=== PATIENT | male | born 1945 | race Caucasian/White ===

== ENCOUNTER → 2016-11-21 | Outpatient (CLI) | payer BC, MEDICARE ==
[~2016-11-21] MED LIST: APIX5TAB PO; ASPI81TA2 PO; ATOR40TA PO; BUDE10.2 PO; CELE200C PO; CLOP75TA PO; CLOT10TR PO; DAPT500V IV; DOCU-168 PO; DULO60CA56 PO; ERTA1VIA IV; FERR324T4 PO; FEXO180T94 PO; FLUC10SU PO; FLUT16SP EA NOSTRIL; GABA-305 PO; HYDR-4078 PO; INSU100V8 SQ; METF1000 PO; METF10002 PO; MULT-933 PO; NIFE-17 PO; OMEG500C7; OMEP40CA52 PO; OXYB5TAB33 PO; SILO4CAP PO; SUCR1TAB PO; VITA150T PO
== END ==
LOC: NWCC 09:51
PROVIDERS: ATTEND Internal Medicine
DX: E11.621 Type 2 diabetes mellitus with foot ulcer (principal); L97.512 Non-pressure chronic ulcer of other part of right foot with fat layer exposed; M86.671 Other chronic osteomyelitis, right ankle and foot; L53.9 Erythematous condition, unspecified

== ENCOUNTER → 2016-12-09 | Outpatient (CLI) | payer BC, MEDICARE | LOC: NWCC 09:37 | PROVIDERS: ATTEND Internal Medicine | DX: Z53.8 Procedure and treatment not carried out for other reasons (principal) ==

== ENCOUNTER → 2016-12-26 | Outpatient (CLI) | payer BC, MEDICARE ==
[~2016-12-26] MED LIST changes: -ASPI81TA2 PO; -CLOP75TA PO; -CLOT10TR PO; -DAPT500V IV; -ERTA1VIA IV; -FERR324T4 PO; -FLUC10SU PO; -METF10002 PO; -OMEG500C7
== END ==
LOC: NWCC 10:02
PROVIDERS: ATTEND Internal Medicine
DX: E11.621 Type 2 diabetes mellitus with foot ulcer (principal); L97.512 Non-pressure chronic ulcer of other part of right foot with fat layer exposed; M86.671 Other chronic osteomyelitis, right ankle and foot; L53.9 Erythematous condition, unspecified
CPT/HCPCS: 11042; 82948; 99183; A6209

== ENCOUNTER → 2016-12-27 | Outpatient (CLI) | payer BC, MEDICARE ==
[~2016-12-27] MED LIST changes: +ASPI81TA2 PO; +CLOP75TA PO; +CLOT10TR PO; +DAPT500V IV; +ERTA1VIA IV; +FERR324T4 PO; +FLUC10SU PO; +METF10002 PO; +OMEG500C7
== END ==
LOC: NWCC 10:18
PROVIDERS: ATTEND Surgery
DX: E11.621 Type 2 diabetes mellitus with foot ulcer (principal); L97.412 Non-pressure chronic ulcer of right heel and midfoot with fat layer exposed; M86.671 Other chronic osteomyelitis, right ankle and foot; B95.61 Methicillin susceptible Staphylococcus aureus infection as the cause of diseases classified elsewhere
CPT/HCPCS: 82948; 99183

== ENCOUNTER → 2016-12-28 | Outpatient (CLI) | payer BC, MEDICARE ==
[~2016-12-28] MED LIST changes: -ASPI81TA2 PO; -CLOP75TA PO; -CLOT10TR PO; -DAPT500V IV; -ERTA1VIA IV; -FERR324T4 PO; -FLUC10SU PO; -METF10002 PO; -OMEG500C7
== END ==
LOC: NWCC 10:20
PROVIDERS: ATTEND Internal Medicine
DX: E11.621 Type 2 diabetes mellitus with foot ulcer (principal); L97.412 Non-pressure chronic ulcer of right heel and midfoot with fat layer exposed; M86.671 Other chronic osteomyelitis, right ankle and foot; B95.61 Methicillin susceptible Staphylococcus aureus infection as the cause of diseases classified elsewhere
CPT/HCPCS: 82948; 99183

== ENCOUNTER → 2016-12-29 | Outpatient (CLI) | payer BC, MEDICARE | LOC: NWCC 10:25 | PROVIDERS: ATTEND Internal Medicine | DX: E11.621 Type 2 diabetes mellitus with foot ulcer (principal); L97.412 Non-pressure chronic ulcer of right heel and midfoot with fat layer exposed; M86.671 Other chronic osteomyelitis, right ankle and foot; B95.61 Methicillin susceptible Staphylococcus aureus infection as the cause of diseases classified elsewhere | CPT/HCPCS: 99183 ==

== ENCOUNTER → 2016-12-30 | Outpatient (CLI) | payer BC, MEDICARE | LOC: NWCC 07:56 | PROVIDERS: ATTEND Internal Medicine | DX: E11.621 Type 2 diabetes mellitus with foot ulcer (principal); L97.412 Non-pressure chronic ulcer of right heel and midfoot with fat layer exposed; M86.671 Other chronic osteomyelitis, right ankle and foot; B95.61 Methicillin susceptible Staphylococcus aureus infection as the cause of diseases classified elsewhere | CPT/HCPCS: 99183 ==

== ENCOUNTER → 2017-01-02 | Outpatient (CLI) | payer BC, MEDICARE | LOC: NWCC 10:28 | PROVIDERS: ATTEND Internal Medicine | DX: E11.621 Type 2 diabetes mellitus with foot ulcer (principal); L97.412 Non-pressure chronic ulcer of right heel and midfoot with fat layer exposed; M86.671 Other chronic osteomyelitis, right ankle and foot; B95.61 Methicillin susceptible Staphylococcus aureus infection as the cause of diseases classified elsewhere | CPT/HCPCS: 99183 ==

== ENCOUNTER → 2017-01-05 | Outpatient (CLI) | payer BC, MEDICARE | LOC: NWCC 10:12 | PROVIDERS: ATTEND Internal Medicine | DX: E11.621 Type 2 diabetes mellitus with foot ulcer (principal); L97.412 Non-pressure chronic ulcer of right heel and midfoot with fat layer exposed; M86.671 Other chronic osteomyelitis, right ankle and foot; B95.61 Methicillin susceptible Staphylococcus aureus infection as the cause of diseases classified elsewhere | CPT/HCPCS: 99183; A6210 ==

== ENCOUNTER → 2017-01-06 | Outpatient (CLI) | payer BC, MEDICARE | LOC: NWCC 10:14 | PROVIDERS: ATTEND Internal Medicine | DX: E11.621 Type 2 diabetes mellitus with foot ulcer (principal); L97.412 Non-pressure chronic ulcer of right heel and midfoot with fat layer exposed; M86.671 Other chronic osteomyelitis, right ankle and foot; B95.61 Methicillin susceptible Staphylococcus aureus infection as the cause of diseases classified elsewhere | CPT/HCPCS: 99183 ==

== ENCOUNTER → 2017-01-09 | Outpatient (CLI) | payer BC, MEDICARE | LOC: NWCC 10:20 | PROVIDERS: ATTEND Internal Medicine | DX: E11.621 Type 2 diabetes mellitus with foot ulcer (principal); L97.412 Non-pressure chronic ulcer of right heel and midfoot with fat layer exposed; M86.671 Other chronic osteomyelitis, right ankle and foot; B95.61 Methicillin susceptible Staphylococcus aureus infection as the cause of diseases classified elsewhere | CPT/HCPCS: 82948; 99183 ==

== ENCOUNTER → 2017-01-10 | Outpatient (CLI) | payer BC, MEDICARE | LOC: NWCC 10:20 | PROVIDERS: ATTEND Surgery | DX: E11.621 Type 2 diabetes mellitus with foot ulcer (principal); L97.412 Non-pressure chronic ulcer of right heel and midfoot with fat layer exposed; M86.671 Other chronic osteomyelitis, right ankle and foot; B95.61 Methicillin susceptible Staphylococcus aureus infection as the cause of diseases classified elsewhere | CPT/HCPCS: 82948; 99183 ==

== ENCOUNTER → 2017-01-11 | Outpatient (CLI) | payer BC, MEDICARE | LOC: NWCC 10:24 | PROVIDERS: ATTEND Internal Medicine | DX: E11.621 Type 2 diabetes mellitus with foot ulcer (principal); L97.412 Non-pressure chronic ulcer of right heel and midfoot with fat layer exposed; M86.671 Other chronic osteomyelitis, right ankle and foot; B95.61 Methicillin susceptible Staphylococcus aureus infection as the cause of diseases classified elsewhere | CPT/HCPCS: 82948; 99183 ==

== ENCOUNTER → 2017-01-12 | Outpatient (CLI) | payer BC, MEDICARE | LOC: NWCC 09:08 | PROVIDERS: ATTEND Internal Medicine | DX: E11.621 Type 2 diabetes mellitus with foot ulcer (principal); L97.412 Non-pressure chronic ulcer of right heel and midfoot with fat layer exposed; M86.671 Other chronic osteomyelitis, right ankle and foot; B95.61 Methicillin susceptible Staphylococcus aureus infection as the cause of diseases classified elsewhere; G62.9 Polyneuropathy, unspecified | CPT/HCPCS: 11042; 82948; 99183 ==

== ENCOUNTER → 2017-01-16 | Outpatient (CLI) | payer BC, MEDICARE | LOC: NWCC 10:16 | PROVIDERS: ATTEND Internal Medicine | DX: E11.621 Type 2 diabetes mellitus with foot ulcer (principal); L97.412 Non-pressure chronic ulcer of right heel and midfoot with fat layer exposed; M86.671 Other chronic osteomyelitis, right ankle and foot; B95.61 Methicillin susceptible Staphylococcus aureus infection as the cause of diseases classified elsewhere | CPT/HCPCS: 82948; 99183 ==

== ENCOUNTER → 2017-01-17 | Outpatient (CLI) | payer BC, MEDICARE | LOC: NWCC 10:14 | PROVIDERS: ATTEND Surgery | DX: E11.621 Type 2 diabetes mellitus with foot ulcer (principal); L97.412 Non-pressure chronic ulcer of right heel and midfoot with fat layer exposed; M86.671 Other chronic osteomyelitis, right ankle and foot; B95.61 Methicillin susceptible Staphylococcus aureus infection as the cause of diseases classified elsewhere | CPT/HCPCS: 82948; 99183 ==

== ENCOUNTER → 2017-01-18 | Outpatient (CLI) | payer BC, MEDICARE | LOC: NWCC 10:01 | PROVIDERS: ATTEND Internal Medicine | DX: E11.621 Type 2 diabetes mellitus with foot ulcer (principal); L97.412 Non-pressure chronic ulcer of right heel and midfoot with fat layer exposed; M86.671 Other chronic osteomyelitis, right ankle and foot; B95.61 Methicillin susceptible Staphylococcus aureus infection as the cause of diseases classified elsewhere | CPT/HCPCS: 11042; 82948; 99183 ==

== ENCOUNTER → 2017-01-19 | Outpatient (CLI) | payer BC, MEDICARE | LOC: NWCC 10:15 | PROVIDERS: ATTEND Internal Medicine | DX: E11.621 Type 2 diabetes mellitus with foot ulcer (principal); L97.412 Non-pressure chronic ulcer of right heel and midfoot with fat layer exposed; M86.671 Other chronic osteomyelitis, right ankle and foot; B95.61 Methicillin susceptible Staphylococcus aureus infection as the cause of diseases classified elsewhere | CPT/HCPCS: 82948; 99183 ==

== ENCOUNTER → 2017-01-20 | Outpatient (CLI) | payer BC, MEDICARE | LOC: NWCC 10:09 | PROVIDERS: ATTEND Internal Medicine | DX: E11.621 Type 2 diabetes mellitus with foot ulcer (principal); L97.412 Non-pressure chronic ulcer of right heel and midfoot with fat layer exposed; M86.671 Other chronic osteomyelitis, right ankle and foot; B95.61 Methicillin susceptible Staphylococcus aureus infection as the cause of diseases classified elsewhere | CPT/HCPCS: 99183 ==

== ENCOUNTER → 2017-01-23 | Outpatient (CLI) | payer BC, MEDICARE | LOC: NWCC 10:22 | PROVIDERS: ATTEND Internal Medicine | DX: E11.621 Type 2 diabetes mellitus with foot ulcer (principal); L97.412 Non-pressure chronic ulcer of right heel and midfoot with fat layer exposed; M86.671 Other chronic osteomyelitis, right ankle and foot; B95.61 Methicillin susceptible Staphylococcus aureus infection as the cause of diseases classified elsewhere | CPT/HCPCS: 99183 ==

== ENCOUNTER → 2017-01-24 | Outpatient (CLI) | payer BC, MEDICARE | LOC: NWCC 10:26 | PROVIDERS: ATTEND Surgery | DX: E11.621 Type 2 diabetes mellitus with foot ulcer (principal); L97.412 Non-pressure chronic ulcer of right heel and midfoot with fat layer exposed; M86.671 Other chronic osteomyelitis, right ankle and foot; B95.61 Methicillin susceptible Staphylococcus aureus infection as the cause of diseases classified elsewhere | CPT/HCPCS: 99183 ==

== ENCOUNTER → 2017-01-25 | Outpatient (CLI) | payer BC, MEDICARE | LOC: NWCC 10:26 | PROVIDERS: ATTEND Internal Medicine | DX: E11.621 Type 2 diabetes mellitus with foot ulcer (principal); L97.412 Non-pressure chronic ulcer of right heel and midfoot with fat layer exposed; M86.671 Other chronic osteomyelitis, right ankle and foot; B95.61 Methicillin susceptible Staphylococcus aureus infection as the cause of diseases classified elsewhere | CPT/HCPCS: 99183 ==

== ENCOUNTER → 2017-01-26 | Outpatient (CLI) | payer BC, MEDICARE | LOC: NWCC 09:28 | PROVIDERS: ATTEND Internal Medicine | DX: E11.621 Type 2 diabetes mellitus with foot ulcer (principal); L97.412 Non-pressure chronic ulcer of right heel and midfoot with fat layer exposed; M86.671 Other chronic osteomyelitis, right ankle and foot; B95.61 Methicillin susceptible Staphylococcus aureus infection as the cause of diseases classified elsewhere | CPT/HCPCS: 11042; 99183; A6209 ==

== ENCOUNTER → 2017-01-26 | Outpatient (CLI) | payer BC, MEDICARE ==
--- NOTE | 2017-01-26 15:05 | DI ---
Indication: ITS.REASON: R51 HEADACHE; R41.5 PROCEDURE: CT HEAD W/O CONTRAST: Encounter: Initial Comparison: December 09, 2016 Technique: Axial CT images through the head were performed without contrast. Iterative Reconstruction dose reducing technique was utilized. FINDINGS: Mild generalized atrophy. The ventricles are unchanged. There are scattered areas of low attenuation in the white matter which most likely represent changes from chronic microvascular ischemia. The brainstem, cerebellum, and cerebral hemispheres otherwise have a normal morphology and CT attenuation. There is no evidence of midline displacement. No hemorrhage, signs of acute territorial stroke, mass effect, mass lesions, or edema is evident. The visualized portions of the skull base, midface, and calvarium demonstrate no abnormality. Small bilateral mastoid effusions. IMPRESSION: No acute intracranial abnormality or hemorrhage. Stable head CT. .
== END ==
LOC: IMA 14:16
PROVIDERS: ATTEND Physician Assistant
DX: R51 Headache (principal); R41.3 Other amnesia; H74.8X3 Other specified disorders of middle ear and mastoid, bilateral

== ENCOUNTER → 2017-01-27 | Outpatient (CLI) | payer BC, MEDICARE | LOC: NWCC 10:25 | PROVIDERS: ATTEND Orthopaedic Surgery | DX: E11.621 Type 2 diabetes mellitus with foot ulcer (principal); L97.412 Non-pressure chronic ulcer of right heel and midfoot with fat layer exposed; M86.671 Other chronic osteomyelitis, right ankle and foot; B95.61 Methicillin susceptible Staphylococcus aureus infection as the cause of diseases classified elsewhere | CPT/HCPCS: 99183 ==

== ENCOUNTER → 2017-02-02 | Outpatient (CLI) | payer BC, MEDICARE ==
[~2017-02-02] MED LIST changes: +CALMOSEPTINE OINTMENT 3.5 G PACKET TOP ONE; +SALINE FLUSH 10ml SYRINGE IVF ONE; +SILVER NITRATE APPLICATOR TOP ONE
== END ==
LOC: NWCC 10:35
PROVIDERS: ATTEND Internal Medicine
DX: E11.621 Type 2 diabetes mellitus with foot ulcer (principal); L97.512 Non-pressure chronic ulcer of other part of right foot with fat layer exposed; M86.671 Other chronic osteomyelitis, right ankle and foot; B95.61 Methicillin susceptible Staphylococcus aureus infection as the cause of diseases classified elsewhere; L53.9 Erythematous condition, unspecified; G62.9 Polyneuropathy, unspecified
CPT/HCPCS: 11042; 87070; 87075; 87077; 87186; 87205; A6209

== ENCOUNTER → 2017-02-08 | Outpatient (CLI) | payer BC, MEDICARE ==
[~2017-02-08] MED LIST changes: -SILVER NITRATE APPLICATOR TOP ONE
--- NOTE | 2017-02-08 15:51 | WOUNDPNF ---
DATE February 08, 2017 CHIEF COMPLAINT Followup for osteomyelitis of the right fifth metatarsal. HISTORY OF PRESENT ILLNESS Mr. Blanco velazquez is a [age]-year-old man with a history of wound on the lateral aspect of his right foot since approximately June 03, 2015. He was diagnosed with osteomyelitis in November 2015. He underwent cardiac catheterization with stenting and also revascularization procedures in his lower extremities by Dr. Rivera in November 2015. He underwent bone biopsy of the right fifth metatarsal on December 08, [address] Bush for cultures and pathology. This showed chronic and acute osteomyelitis and the bone culture had a negative Gram stain but grew methicillin-susceptible Staph aureus which was sensitive to clindamycin, doxycycline, erythromycin, linezolid, tetracycline, tigecycline, sulfa and vancomycin. I treated him with daptomycin for outpatient therapy and he completed six weeks on approximately January 26, 2016. Following that he was given Keflex for another one to two weeks and continued to follow in the wound clinic with Dr. Cruz. However, the wound did not completely heal. In September his wound was noted to be getting larger. He had a bone scan done October 07 which showed osteomyelitis of the right fifth metatarsal head region. I saw him again on October 26, 2016 and started him on another six-week course of IV antibiotics. He was treated with daptomycin as well as Invanz. He also underwent hyperbaric oxygen therapy. I last saw him December 07. He was near the end of his six-week course of IV antibiotics at that time but he continued to have a wound on his foot so I gave him Bactrim for another two weeks. His most recent wound culture was from February 02 which had a few gram-positive cocci, few gram-positive rods on the Gram stain and is growing Proteus mirabilis and Diphtheroid bacillus. The Proteus is susceptible to Bactrim. He was given Bactrim by Dr. Cruz on February 06, which was two days ago, and given about 21 days. His son states that he has not yet picked up that prescription. He is referred for further evaluation today and he also is being evaluated by Dr. Bush today. PAST MEDICAL HISTORY, PAST SURGICAL HISTORY, SOCIAL HISTORY, FAMILY, HISTORY Reviewed. ALLERGIES No known drug allergies. REVIEW OF SYSTEMS He denies any recent fevers or chills. No new complaints today. PHYSICAL EXAMINATION VITAL SIGNS: Temperature is 97.3, blood pressure 119/65, pulse 78, respirations 20. GENERAL: He is comfortable and is in no acute distress. HEENT: Pupils are equal, round, reactive to light. Extraocular movements intact. Oropharynx is clear. NECK: Supple. HEART: Regular rate and rhythm. No murmurs noted. LUNGS: Clear to auscultation bilaterally anteriorly. ABDOMEN: Soft, nontender with bowel sounds present. EXTREMITIES: No joint effusions noted. Trace edema of the lower extremities bilaterally. He has a wound on the lateral aspect near the fifth metatarsal head which appears relatively clean. No purulence or cellulitis is noted. His wound measures 2.5 x 1.7 x 0.3. SKIN: No rashes. NEUROLOGIC: Exam is grossly nonfocal although he does have numbness in his feet. LABORATORY The only recent labs noted in the computer are glucometer checks and on January 19 his glucose was 306. IMPRESSION 1. Chronic osteomyelitis involving the right fifth metatarsal, status post bone biopsy December 08, 2015 with bone culture growing methicillin-susceptible Staph aureus, status post six weeks of treatment with daptomycin 600 mg IV daily completed January 26, 2016. 2. Chronic nonhealing wound of lateral aspect of the right fifth metatarsal head, most likely secondary to chronic osteomyelitis, status post daptomycin and Invanz for six weeks ending the end of November 2016. He is status post hyperbaric oxygen therapy also. 3. Peripheral vascular disease status post CORE DRILLER and stenting 2015. 4. Coronary artery disease status post stenting November 2015. 5. Diabetes mellitus type 2 with neuropathy. 6. COPD. 7. Gastroesophageal reflux disease. 8. History of cerebrovascular accident with right lower extremity weakness. 9. Dementia per records. 10. Status post pacemaker placement, 11. Gout. 12. History of recurrent thrush. RECOMMENDATIONS I suspect that the Proteus in the wound culture could represent colonization of this wound. I suspect that the main pathogen remains Staph aureus. I am not optimistic that another six-week course of IV antibiotics will heal his wound. I would recommend amputation. Dr. Bush is here evaluating the patient today and I believe he recommends amputation as well. Dr. Bush is hoping that the patient's diabetes can be under better control prior to this surgery. For now I would continue with Bactrim one double-strength tablet p.o. b.i.d. and I will check CBC, BMP and CRP once a month while he is on the Bactrim. I will plan to see him back in followup in three to four weeks. YADY
--- NOTE | 2017-02-08 17:25 | WOUNDCONF ---
DATE February 08, 2017 CHIEF COMPLAINT Right diabetic foot ulcer. HISTORY OF PRESENT ILLNESS Mr. Simeon is a 71-year-old gentleman who has been treated in the wound clinic previously for his right lateral foot ulcer that has been present for several months. He also has osteomyelitis in the fifth metatarsal head. He has been through multiple treatment plans including IV antibiotics, surgical debridement and hyperbaric oxygen chamber treatment. Unfortunately, his wound is not improving. He also has diabetes which is not currently well controlled. He is to see Dr. Nieto to hopefully get his blood sugars under better control. He has that appointment on Monday. This is a grade 3 diabetic foot ulcer. REVIEW OF SYSTEMS Negative for chills, fever, chest pain, shortness of breath, nausea, vomiting, diarrhea or constipation. PAST MEDICAL HISTORY, PAST SURGICAL HISTORY, MEDICATIONS, ALLERGIES, SOCIAL HISTORY Reviewed by myself and available in [facility] EMR. EXAM GENERAL: He is alert and oriented. He is talkative. He is here with his son. RIGHT LOWER EXTREMITY: He has a grade 3 open diabetic foot ulcer over the lateral aspect of the foot in line with the fifth metatarsal head. The wound base has necrotic subcutaneous tissue as well as bioburden. The surrounding tissue is macerated. He has a well-healed incision over the medial aspect of the right foot. ASSESSMENT Right foot diabetic foot ulcer. PLAN Unfortunately, despite multiple interventions this ulcer is not improving. I do think he will require amputation. I would like him to see Dr. Nieto first and hopefully get his blood sugars under better control before proceeding with that amputation. In talking to Dr. Cruz, she thought this may take at least a month to try to improve his blood sugars. Once that is the case I would like to see him again to discuss further surgical interventions. [facility]
== END ==
LOC: NWCC 10:36
PROVIDERS: ATTEND Internal Medicine Infectious Disease
DX: E11.621 Type 2 diabetes mellitus with foot ulcer (principal); L97.512 Non-pressure chronic ulcer of other part of right foot with fat layer exposed; M86.671 Other chronic osteomyelitis, right ankle and foot; R73.9 Hyperglycemia, unspecified; Z79.4 Long term (current) use of insulin; I73.9 Peripheral vascular disease, unspecified; I25.10 Atherosclerotic heart disease of native coronary artery without angina pectoris; E11.40 Type 2 diabetes mellitus with diabetic neuropathy, unspecified; J44.9 Chronic obstructive pulmonary disease, unspecified; K21.9 Gastro-esophageal reflux disease without esophagitis; Z86.73 Personal history of transient ischemic attack (TIA), and cerebral infarction without residual deficits; F03.90 Unspecified dementia, unspecified severity, without behavioral disturbance, psychotic disturbance, mood disturbance, and anxiety; Z95.0 Presence of cardiac pacemaker; Z87.898 Personal history of other specified conditions
CPT/HCPCS: 11042; 36416; 83036; A6209

== ENCOUNTER → 2017-03-01 | Outpatient (CLI) | payer MEDICARE ==
[~2017-03-01] MED LIST changes: -CALMOSEPTINE OINTMENT 3.5 G PACKET TOP ONE; -SALINE FLUSH 10ml SYRINGE IVF ONE
[2017-03-01 10:44] LABS: BASOPHILS # (AUTO) 0.1 T/MM3 (0-0.2); BASOPHILS % (AUTO) 0.8 % (0-2); EOSINOPHILS # (AUTO) 0.3 T/MM3 (0-0.5); EOSINOPHILS % (AUTO) 4.2 % (0-4); HCT - HEMATOCRIT 47.4 % (41-53); HGB - HEMOGLOBIN 15.7 GM/DL (13.5-17.5); IMMATURE GRANULOCYTE # (AUTO) 0.03 T/MM3 (0.00-0.03); IMMATURE GRANULOCYTE % (AUTO) 0.4 % (0.0-0.5); LYMPHOCYTES # (AUTO) 2.1 T/MM3 (1-4.8); LYMPHOCYTES % (AUTO) 29.1 % (23-45); MEAN CORPUSCULAR HGB 29.5 UUG (26-34); MEAN CORPUSCULAR HGB CONC(MCHC 33.1 GM/DL (31-37); MEAN CORPUSCULAR VOLUME 89.1 UM3 (80-100); MEAN PLATELET VOLUME 11.1 UM3 (9.4-12.4); MONOCYTES # (AUTO) 0.3 T/MM3 (0-0.8); MONOCYTES % (AUTO) 4.5 % (0-9.0); NEUTROPHILS #(AUTO)-ABSOLUTE 4.4 T/MM3 (1.8-7.7); RED BLOOD COUNT 5.32 M/MM3 (4.50-5.90); WBC - WHITE BLOOD COUNT 7.2 T/MM3 (4.5-11.0)
[2017-03-01 10:56] LABS: ANION GAP 18 MEQ/L (5-15); BUN/CREATININE RATIO 26 RATIO (6-26); C-REACTIVE PROTEIN 9.6 MG/L (0-9); CALCIUM 10.3 MG/DL (8.4-10.2); CHLORIDE 102 MEQ/L (98-107); CO2 - CARBON DIOXIDE 24 MEQ/L (22-30); CREATININE 0.7 MG/DL (0.8-1.5); GLOMERULAR FILTRATION RATE 111; GLUCOSE 272 MG/DL (75-110); POTASSIUM 4.9 MEQ/L (3.6-5); SODIUM 144 MEQ/L (134-144)
== END ==
LOC: LAB 10:06
PROVIDERS: ATTEND Internal Medicine
DX: Z79.2 Long term (current) use of antibiotics (principal)
CPT/HCPCS: 36415; 80048; 85025; 86140

== ENCOUNTER 2017-07-04 11:30 | Inpatient (IN) ==
[2017-07-04 11:55] VITALS: BMI 32.3
[2017-07-04] MEDS: NS 1,000 ML IV SCH (12:35)
[2017-07-04] MEDS ORDERED: LIDOCAINE 1% (10mg/ml) 30ml SDV INJ ONE (13:30)
[2017-07-04] MEDS ORDERED: HEPARIN 1,000 UNITS/500 ML PREMIX (*CVL ONLY*) IV ONE (13:30)
[2017-07-04] MEDS ORDERED: FentaNYL 100 MCG/2 ML INJECTION ONE (14:16)
[2017-07-04] MEDS ORDERED: SALINE FLUSH 10ml SYRINGE ONE (14:17)
[2017-07-04] MEDS ORDERED: MIDAZOLAM 2mg/2ml INJECTION ONE (14:17)
[2017-07-04] MEDS ORDERED: CLOPIDOGREL 75 MG TABLET ONE (14:56)
[2017-07-04] MEDS ORDERED: HEPARIN 1,000unit/ml INJECTION 10ml ONE (14:56)
[2017-07-04] MEDS ORDERED: ASPIRIN 325 MG TABLET ONE (15:16)
[2017-07-04] MEDS ORDERED: Bisacodyl EC TAB 5 MG TABLET PO PRN (15:27)
[2017-07-04] MEDS ORDERED: NITROGLYCERIN 0.4 MG SUBLINGUAL TABLET SL PRN (15:27)
[2017-07-04] MEDS ORDERED: ONDANSETRON 4 MG/2 ML INJECTION IVP PRN (15:27)
[2017-07-04] MEDS ORDERED: MORPHINE SULFATE 4 MG SYRINGE IVP PRN ×2 (15:27)
[2017-07-04] MEDS ORDERED: METOCLOPRAMIDE 10mg/2ml INJECTION IVP PRN (15:27)
[2017-07-04] MEDS ORDERED: BISACODYL 10 MG SUPPOSITORY RECTALLY PRN (15:27)
[2017-07-04] MEDS ORDERED: ACETAMINOPHEN 325 MG TABLET PO PRN (15:27)
[2017-07-04] MEDS ORDERED: ATROPINE 1 MG/ML INJECTION IVP PRN (15:27)
[2017-07-04] MEDS ORDERED: HYDROCODONE/APAP 7.5 MG/325 MG TABLET PO PRN (15:27)
[2017-07-04] MEDS ORDERED: MAG-AL + SIM ORAL LIQUID 30ml PO PRN (15:27)
[2017-07-04] MEDS ORDERED: LORazepam 0.5 MG TABLET PO PRN (15:27)
[2017-07-04] MEDS ORDERED: PROMETHAZINE 25 MG INJECTION IVP PRN (15:27)
[2017-07-04] MEDS ORDERED: HYDRALAZINE 20 MG/ML INJECTION ONE (15:41)
[2017-07-04] MEDS ORDERED: APIXABAN 5 MG TABLET PO SCH (19:45)
[2017-07-04] MEDS ORDERED: [UNRECOGNIZED DRUG - SUPPLY] SCH (19:45)
[2017-07-04] MEDS ORDERED: NON-FORMULARY MEDICATION 1 EACH EACH (Nifedipine [Nifedipine Er] 30 MG) PO SCH (19:45)
[2017-07-04] MEDS ORDERED: HYDROCODONE/APAP 10 MG/325 MG TABLET PO PRN (19:45)
[2017-07-04] MEDS ORDERED: FLUTICASONE NASAL SPRAY 50mcg EA NOSTRIL PRN (19:45)
--- NOTE | 2017-07-04 20:06 | Cardiac Catheterization Report ---
DATE OF PROCEDURE July 04, 2017 The patient is a 72-year-old gentleman with coronary artery disease and abnormal stress test and ulcer of the right lower extremity. He was referred for further evaluation by cardiac catheterization and lower extremity angiogram and possible intervention. Informed consent was obtained after explaining the procedure and the potential risks to the patient who agreed to proceed with the procedure. PROCEDURE 1. Left heart catheterization. 2. Coronary angiography. 3. Left ventriculography. 4. Prior PTCA and stent of the LAD using a 2.75 x 20, 2.5 x 12 and a 3.5 x 12 drug-eluting Resolute [place] stents. 5. Abdominal aortography by placing catheter in abdominal aorta across the renal arteries. 6. Pelvic angiography by placing catheter in distal abdominal aorta. 7. Selective right lower extremity angiogram using crossover technique and placing catheter in right SFA and right common femoral arteries. 8. Runoffs of the left lower extremity through the left femoral sheath. 9. Successful Mynx deployment for hemostasis. TECHNIQUE He was prepped and draped in the usual sterile techniques. Conscious sedation was performed using Versed and fentanyl. Using modified Seldinger technique, arterial access was obtained into the left femoral artery with placement of a 6- Fr arterial sheath after anesthetizing the region using 1% lidocaine. 8000 units of heparin and 600 mg of Plavix were given prior to intervention. LEFT VENTRICULOGRAPHY Left ventriculography in single-plane VICENTE shallow projection showed anterior and apical akinesia and inferior hypokinesia with ejection fraction of about 20 % with no mitral regurgitation or gradient across the aortic valve. LVEDP was about 18. CORONARY ANGIOGRAPHY Left main was free of significant lesions. Left anterior descending artery had two 90% in-stent stenoses, one in proximal and one in mid LAD. Distal to the stent there was another 70% stenosis. The very distal vessel also had about 60% -70% stenosis. Diagonal artery had 90% stenosis. The left circumflex artery had about 40%-50% mid stenosis with calcification. Right coronary artery had minor disease of up to about 40%. After reviewing the images we decided to proceed with intervention. A 6-Fr EBU 3.75 was advanced to the ostium of left main. A Runthrough wire was used to cross the lesion into distal LAD. A 2.5 x 20 balloon was delivered to the lesion site and two inflations were performed up to 14 atmospheres. Next, we used a 2.75 x 22 drug-eluting [place]ville stent which was delivered to the distal part of the lesion and deployed by inflating the balloon to 16 atmospheres. The next angiogram showed excellent results with no residual stenosis at the site. However, distal to the stent there was another 70% stenosis. We used a 2.5 x 12 drug-eluting Resolute [place] stent which was delivered over the wire distal to the previous stent with minimal overlap and deployed by inflating the balloon to 14 atmospheres. The next angiogram showed excellent results with no residual stenosis at the site. Next, we used a 3.5 x 12 drug-eluting Resolute [place] stent which was delivered to the proximal lesion site where it was deployed by inflating the balloon to 16 atmospheres. The next angiogram showed excellent results with no residual stenosis in LAD. However, distal LAD had another 60%-70% stenosis. At this point the LAD was a small-caliber vessel in the range of 2 mm and therefore we decided to continue medical management for this site. ABDOMINAL AORTOGRAPHY Abdominal aortography showed diffuse irregularities of the abdominal aorta with no significant lesions or aneurysms. There were single renal arteries to each kidney. Right renal artery was widely patent. Left renal artery was not visualized well. PELVIC ANGIOGRAPHY Pelvic angiography showed patent common iliacs, external and internal iliacs and common femoral arteries bilaterally. Selective right lower extremity angiogram showed patent profunda. SFA had 80%- 90% focal in-stent stenosis. Right popliteal artery was patent. Right anterior tibial, posterior tibial and peroneal arteries were occluded with reconstitution of the peroneal artery in mid segment and reconstitution of the anterior and posterior left tibial arteries distally through the collaterals. Runoffs of the left lower extremity showed patent profunda. SFA had 80%-90% stenosis. Popliteal artery was patent. Left anterior tibial and posterior tibial arteries were occluded. Left peroneal artery had 90% stenosis. The patient tolerated the procedure well with no complications. Mynx was used for hemostasis. IMPRESSION 1. Severe LV dysfunction with ejection fraction of about 20%. 2. Coronary artery disease as described above. 3. Successful PTCA and stent of LAD using a 2.5 x 12, 2.75 x 22, and 3.5 x 12 drug-eluting Resolute [place] stents. 4. High-grade stenosis of the diagonal artery. 5. High peripheral arterial disease as described above. 6. Successful Mynx deployment for hemostasis. PLAN Will keep him on dual antiplatelet therapy and continue risk modification. Recheck the LV function in future after percutaneous intervention. Meanwhile, will schedule him to undergo diagonal percutaneous intervention in the near future. With regard to PAD one might consider right SFA [employer] and possible recanalization and [employer] of the right peroneal artery. This should be approached from the left groin. With regard to the left SFA disease, one might consider left SFA and left peroneal artery percutaneous intervention from right groin. YADY
[2017-07-04] MEDS: DOCUSATE SODIUM 100 MG CAPSULE PO SCH (20:20)
[2017-07-04] MEDS: DULOXETINE 60 MG PO SCH (20:23)
[2017-07-04] MEDS: ATORVASTATIN 40 MG TABLET PO SCH (20:25)
[2017-07-04] MEDS ORDERED: DOXYCYCLINE HYCLATE 100 MG PO SCH (21:00)
[2017-07-04] MEDS ORDERED: NON-FORMULARY MEDICATION 1 EACH EACH (Oxybutynin Chloride [Oxybutynin Chloride] 5 MG) PO SCH (21:00)
[2017-07-05] MEDS: NS 1,000 ML IV SCH (01:00)
[2017-07-05] MEDS ORDERED: NS 100 ML ONE (08:38)
[2017-07-05] MEDS ORDERED: SALINE FLUSH 10ml SYRINGE ONE (08:38)
[2017-07-05] MEDS ORDERED: IOHEXOL 300mg/ml 50ml INJECTION ONE (08:38)
[2017-07-05] MEDS: DOXYCYCLINE 100 MG PO SCH ×2 (08:41→18:10)
[2017-07-05] MEDS: FEXOFENADINE 180 MG TABLET PO SCH (08:42)
[2017-07-05] MEDS: CELECOXIB 200 MG CAPSULE PO SCH (08:43)
[2017-07-05] MEDS: DOCUSATE SODIUM 100 MG CAPSULE PO SCH ×2 (08:43→21:04)
[2017-07-05] MEDS: DULOXETINE 60 MG PO SCH ×2 (08:43→21:05)
[2017-07-05] MEDS: OXYBUTYNIN IR 5 MG PO SCH ×2 (08:44→21:05)
[2017-07-05] MEDS: MULTI-VITAMIN PLAIN TABLET PO SCH (08:44)
[2017-07-05] MEDS: STRESS FORMULA PO SCH (08:44)
[2017-07-05] MEDS: ZINC PO SCH (08:44)
[2017-07-05] MEDS ORDERED: BUMETANIDE 2.5mg/10ml INJECTION IVP ONE (08:48)
[2017-07-05] MEDS ORDERED: NON-FORMULARY MEDICATION 1 EACH EACH (Multivitamin [Multi-Day Vitamins] 1 TAB) PO SCH (09:00)
[2017-07-05] MEDS ORDERED: VITAMIN B COMPLEX VIT C NO 4 PO SCH (09:00)
[2017-07-05] MEDS ORDERED: BUMETANIDE 0.5 MG PO SCH (09:00)
[2017-07-05] MEDS ORDERED: --POM--NIFEdipine XL 30 MG TABLET PO SCH (09:00)
--- NOTE | 2017-07-05 09:28 | XRay Report ---
Indication: confusion PROCEDURE: XR chest 1V: Encounter: Initial Comparison: April 21, 2017 Findings: Linear atelectasis or scarring in the left midlung. Mild pulmonary vascular congestion. No pneumothorax or lobar consolidation. Cardiac silhouette remains enlarged and mediastinal contours are slightly widened with pulmonary vascular prominence. Left pacemaker. Impression: Mild pulmonary vascular congestion without focal pneumonia. .
[2017-07-05] MEDS ORDERED: AMIODARONE 150mg/3ml INJECTION IV ONE (10:11)
[2017-07-05] MEDS ORDERED: AMIODARONE 900 MG/18 ML IV SCH (10:15)
--- NOTE | 2017-07-05 10:58 | CT Scan Report ---
Indication: confusion PROCEDURE: CT head/brain wo/w con: Encounter: Initial Comparison: January 26, 2017 Technique: Axial CT images through the head were performed without and with IV contrast. Iterative Reconstruction dose reducing technique was utilized. Contrast: Omnipaque 300 50mL FINDINGS: The ventricles are of normal size, shape, and contour for the patient's age. Mild atrophy. Scattered white matter low-attenuation changes are stable. The brainstem, cerebellum, and cerebral hemispheres have a normal morphology and CT attenuation. No hemorrhage, mass effect, mass lesions, or edema is evident. No areas of abnormal enhancement are seen. The visualized portions of the skull base, sinuses, and calvarium demonstrate no abnormality. IMPRESSION: Stable head CT. No acute intracranial abnormality. No evidence of intracranial metastatic disease. .
[2017-07-05] MEDS ORDERED: AMIODARONE 150 MG in NS 100 ML IV ONE (11:00)
[2017-07-05] MEDS ORDERED: AMIODARONE 900 MG in NS 500ml 500 ML IV SCH ×2 (11:00→17:00)
--- NOTE | 2017-07-05 12:30 | Cardiology Progress Note ---
Subjective Principal diagnosis: CAD, ischemic cardiomyopathy <Lilaina Landon 07/05/17 12:39> Interval history: Yosi is seen in his room in CCU. He is not oriented to place or time. He denies chest pain, palpitations, dyspnea or other cardiac complaints. <Liliana Landon 07/05/17 12:39> Exam Vital signs: Temperature 98.2 F 07/06/17 07:30 Pulse Rate 71 07/06/17 13:15 Respiratory Rate 29 H 07/06/17 13:15 Blood Pressure 160/75 H 07/06/17 13:00 Pulse Oximetry 100 07/06/17 13:15 <Kirt Rivera - 07/07/17 14:08> Temperature 99.1 F 07/05/17 07:00 Pulse Rate 84 07/05/17 08:00 Respiratory Rate 22 07/05/17 11:35 Blood Pressure 128/73 07/05/17 07:00 Pulse Oximetry 93 07/05/17 07:00 <Liliana Landon 07/05/17 12:39> - Constitutional no acute distress, cooperative <Liliana Landon 07/05/17 12:39> - Routine HEENT Exam Head: Present: normocephalic <Liliana Landon 07/05/17 12:39> ENT: Present: mucous membranes moist <Liliana Landon 07/05/17 12:39> - Routine Neck Exam Present: JVD <Liliana Landon 07/05/17 12:39> - Routine Chest/Breast/Axilla Exam Chest wall: Absent: tenderness <Liliana Landon 07/05/17 12:39> - Routine Respiratory Exam Present: rales (bibasilar). Absent: CTA bilaterally <Liliana Landon 12:39> - Routine Cardiovascular Exam Present: murmur (II/ systolic ejection), JVD <Liliana Landon 07/05/17 12: 39> - Routine Abdominal Exam Present: soft, normoactive bowel sounds <Liliana Landon 07/05/17 12:39> - Routine Extremities Exam Present: edema <Liliana Landon - 09/20/17 12:39> - Routine Skin Exam Present: intact, dry, warm <Liliana Landon - 07/05/17 12:39> - Routine Neurological Exam Present: alert, altered mental status <Liliana Landon - 07/05/17 12:39> - Routine Psychiatric Exam Present: cooperative <Liliana Landon M - 07/05/17 12:39> - Additional findings Additional findings: Laboratory Results - last 48 hr 07/04/17 07/04/17 07/04/17 12:07 12:07 16:49 WBC 7.8 RBC 4.85 Hgb 14.3 Hct 43.2 MCV 89.1 MCH 29.5 MCHC 33.1 RDW Std Deviation 44.7 Plt Count 218 MPV 10.7 Immature Gran % (Auto) 0.3 Neut % (Auto) 57.9 Lymph % (Auto) 31.3 [place] % (Auto) 5.6 Eos % (Auto) 4.3 H Baso % (Auto) 0.6 Neut # 4.5 Lymph # 2.5 [place] # 0.4 Eos # 0.3 Baso # 0.1 Abs Immat Gran (auto) 0.02 Turbidity < 20 Sodium 146 H Potassium 3.4 L Chloride 107 Carbon Dioxide 29 Anion Gap 10 BUN 16.0 Creatinine 0.8 GFR Calculation 95 BUN/Creatinine Ratio 20 Glucose 185 H Glucometer 117 Calculated Osmolality 287 H Calcium 9.9 Total Bilirubin Conjugated Bilirubin Unconjugated Bilirubin Icterus Index < 2 AST ALT Alkaline Phosphatase Total Protein Albumin Globulin Albumin/Globulin Ratio Specimen Hemolysis < 15 Ur Collection Type Urine Color Urine Clarity Urine pH Ur Specific Rule Urine Protein Urine Glucose (UA) Urine Ketones Urine Occult Blood Urine Nitrate Urine Bilirubin Urine Urobilinogen Ur Leukocyte Esterase Urinalysis Comment 07/04/17 07/05/17 07/05/17 21:14 05:17 05:17 WBC 7.5 RBC 4.87 Hgb 14.6 Hct 42.9 MCV 88.1 MCH 30.0 MCHC 34.0 RDW Std Deviation 44.5 Plt Count 192 MPV 11.2 Immature Gran % (Auto) 0.3 Neut % (Auto) 83.8 H Lymph % (Auto) 7.1 L [place] % (Auto) 5.7 Eos % (Auto) 2.7 Baso % (Auto) 0.4 Neut # 6.3 Lymph # 0.5 L [place] # 0.4 Eos # 0.2 Baso # 0.0 Abs Immat Gran (auto) 0.02 Turbidity < 20 Sodium 142 Potassium 3.7 Chloride 106 Carbon Dioxide 25 Anion Gap 11 BUN 14.0 Creatinine 0.7 L GFR Calculation 111 BUN/Creatinine Ratio 20 Glucose 175 H Glucometer 148 Calculated Osmolality 278 Calcium 9.3 Total Bilirubin Conjugated Bilirubin Unconjugated Bilirubin Icterus Index < 2 AST ALT Alkaline Phosphatase Total Protein Albumin Globulin Albumin/Globulin Ratio Specimen Hemolysis 23 Ur Collection Type Urine Color Urine Clarity Urine pH Ur Specific Rule Urine Protein Urine Glucose (UA) Urine Ketones Urine Occult Blood Urine Nitrate Urine Bilirubin Urine Urobilinogen Ur Leukocyte Esterase Urinalysis Comment 07/05/17 07/05/17 07/05/17 06:16 08:58 11:46 WBC RBC Hgb Hct MCV MCH MCHC RDW Std Deviation Plt Count MPV Immature Gran % (Auto) Neut % (Auto) Lymph % (Auto) [place] % (Auto) Eos % (Auto) Baso % (Auto) Neut # Lymph # [place] # Eos # Baso # Abs Immat Gran (auto) Turbidity < 20 Sodium Potassium Chloride Carbon Dioxide Anion Gap BUN Creatinine GFR Calculation BUN/Creatinine Ratio Glucose Glucometer 177 Calculated Osmolality Calcium Total Bilirubin 1.50 H Conjugated Bilirubin 0.00 Unconjugated Bilirubin 1.00 Icterus Index < 2 AST 32 ALT 39 Alkaline Phosphatase 58 Total Protein 6.6 Albumin 4.0 Globulin 2.6 Albumin/Globulin Ratio 1.5 Specimen Hemolysis 56 H Ur Collection Type [place] Urine Color Yellow Urine Clarity Clear Urine pH 6.0 Ur Specific Rule <=1.005 L Urine Protein Negative Urine Glucose (UA) Negative Urine Ketones Negative Urine Occult Blood Negative Urine Nitrate Negative Urine Bilirubin Negative Urine Urobilinogen 0.2 Ur Leukocyte Esterase Negative Urinalysis Comment Microscopic not ind. 07/05/17 12:10 WBC RBC Hgb Hct MCV MCH MCHC RDW Std Deviation Plt Count MPV Immature Gran % (Auto) Neut % (Auto) Lymph % (Auto) [place] % (Auto) Eos % (Auto) Baso % (Auto) Neut # Lymph # [place] # Eos # Baso # Abs Immat Gran (auto) Turbidity Sodium Potassium Chloride Carbon Dioxide Anion Gap BUN Creatinine GFR Calculation BUN/Creatinine Ratio Glucose Glucometer 173 Calculated Osmolality Calcium Total Bilirubin Conjugated Bilirubin Unconjugated Bilirubin Icterus Index AST ALT Alkaline Phosphatase Total Protein Albumin Globulin Albumin/Globulin Ratio Specimen Hemolysis Ur Collection Type Urine Color Urine Clarity Urine pH Ur Specific Rule Urine Protein Urine Glucose (UA) Urine Ketones Urine Occult Blood Urine Nitrate Urine Bilirubin Urine Urobilinogen Ur Leukocyte Esterase Urinalysis Comment Acetaminophen (Tylenol) 325 - 650 mg PO Q5H PRN PRN Reason: Pain Acetaminophen/Hydrocodone Bitart ([place] 7.5/325) 1 - 2 tab PO Q5H PRN PRN Reason: Pain Last Admin: 07/04/17 16:47 Dose: 1 tab Acetaminophen/Hydrocodone Bitart ([place] 10/325) 1 tab PO Q4H PRN PRN Reason: pain Al Hydroxide/Mg Hydroxide (Maalox Plus) 30 ml PO Q3H PRN PRN Reason: Indigestion Apixaban (Eliquis) 5 mg PO Q12HR [facility] Aspirin (Ecotrin) 81 mg PO DAILY [facility] Atorvastatin Calcium (Lipitor) 40 mg PO HS [facility] Last Admin: 07/04/17 20:25 Dose: 40 mg Atropine Sulfate (Atropine) 0.5 mg IVP Q5M PRN PRN Reason: Bradycardia Bisacodyl (Dulcolax) 5 - 10 mg PO DAILY PRN PRN Reason: Constipation Bisacodyl (Dulcolax) 10 mg RECTALLY DAILY PRN PRN Reason: Constipation Budesonide/Formoterol Fumarate (Symbicort Inhaler) 2 puff ORAL INH BID [facility] Last Admin: 07/05/17 11:39 Dose: 2 puff Carvedilol (Coreg) 3.125 mg PO BIDWM [facility] Celecoxib (Celebrex) 200 mg PO DAILY [facility] Last Admin: 07/05/17 08:43 Dose: 200 mg Clopidogrel Bisulfate (Plavix) 75 mg PO DAILY [facility] Docusate Sodium (Colace) 100 mg PO BID [facility] Last Admin: 07/05/17 08:43 Dose: 100 mg Doxycycline Hyclate (Vibramycin) 100 mg PO BIDWM [facility] Last Admin: 07/05/17 08:41 Dose: 100 mg Duloxetine HCl (Cymbalta) 60 mg PO BID [facility] Last Admin: 07/05/17 08:43 Dose: 60 mg Fexofenadine HCl (Allie) 180 mg PO DAILY [facility] Last Admin: 07/05/17 08:42 Dose: 180 mg Fluticasone Propionate (Flonase) 2 spray EA NOSTRIL DAILY PRN PRN Reason: PRN orders Amiodarone HCl 900 mg/ Sodium (Chloride) 500 mls @ 33.33 mls/hr IV .Q15H1M [facility] PRN Reason: 1 MG/MIN Stop: 07/05/17 17:00 Last Admin: 07/05/17 11:27 Dose: 1 mg/min, 33.33 mls/hr Amiodarone HCl 900 mg/ Sodium (Chloride) 500 mls @ 16.66 mls/hr IV .Q24H [facility] PRN Reason: 0.5 MG/MIN Magnesium Hydroxide (Mom) 30 ml PO DAILY PRN PRN Reason: Constipation Metoclopramide HCl (Reglan) 5 - 10 mg IVP Q6H PRN PRN Reason: Nausea &/or vomiting Morphine Sulfate (Morphine Sulfate Inj) 2 - 4 mg IVP Q5M PRN PRN Reason: Angina Morphine Sulfate (Morphine Sulfate Inj) 2 - 4 mg IVP Q2H PRN PRN Reason: Pain Stop: 07/05/17 15:26 Multivitamins (Theragran) 1 tab PO DAILY [facility] Last Admin: 07/05/17 08:44 Dose: 1 tab Nitroglycerin (Nitrostat) 0.4 mg SL Q5MIN3 PRN PRN Reason: Angina Ondansetron HCl (Zofran) 4 mg IVP Q6H PRN PRN Reason: Nausea &/or vomiting Oxybutynin Chloride (Ditropan) 5 mg PO BID [facility] Last Admin: 07/05/17 08:44 Dose: 5 mg Promethazine HCl (Phenergan Inj) 12.5 - 25 mg IVP Q6H PRN PRN Reason: Nausea &/or vomiting Sacubitril/Valsartan (Entresto 24/26mg) 1 tab PO BID [facility] Silodosin (Rapaflo) 4 mg PO DAILY PRN Vitamin B Complex/Vit C/Vit E/Zinc (Stresstabs + Zinc) 1 tab PO DAILY [facility] Last Admin: 07/05/17 08:44 Dose: 1 tab <Liliana Landon - 07/05/17 12:39> Assessment and Plan - Assessment and Plan (1) Atherosclerotic heart disease of [place] coronary artery without angina pectoris Status: Acute (2) Ischemic cardiomyopathy Problem details: Dilated Status: Acute (3) Atherosclerosis of [place] artery of both lower extremities Status: Acute (4) Presence of cardiac pacemaker Status: Acute (5) Mixed hyperlipidemia Status: Acute (6) Type 2 diabetes mellitus without complications Status: Acute (7) Paroxysmal atrial fibrillation Status: Acute (8) Mental status change Status: Acute <Kirt Rivera - 07/07/17 14:08> (1) Atherosclerotic heart disease of [place] coronary artery without angina pectoris Status: Acute Coronary artery disease with successful PTCA and stent of LAD using a 2.5 x 12, 2.75 x 22, and 3.5 x 12 drug-eluting Resolute [place] stents. High-grade stenosis of the diagonal artery. PLAN Will keep him on dual antiplatelet therapy and continue risk modification. Recheck the LV function in future after percutaneous intervention. Meanwhile, will schedule him to undergo diagonal percutaneous intervention in the near future. (2) Ischemic cardiomyopathy Problem details: Dilated Status: Acute Severe LV dysfunction with ejection fraction of about 20%. LifeVest, DC nifedipine and start Coreg and Entresto Recheck the LV function in future after percutaneous intervention. (3) Paroxysmal atrial fibrillation Status: Acute Check LFTs. Start IV Amiodarone bolus and drip. Continue to monitor telemetry for proarrhythmic changes. Repeat EKG in am. On Eliquis to prevent stroke. (4) Atherosclerosis of [place] artery of both lower extremities Status: Acute High peripheral arterial disease With regard to PAD one might consider right SFA [employer] and possible recanalization and [employer] of the right peroneal artery. This should be approached from the left groin. With regard to the left SFA disease, one might consider left SFA and left peroneal artery percutaneous intervention from right groin. (5) Presence of cardiac pacemaker Status: Acute Dual chamber [employer] PPM (6) Mixed hyperlipidemia Status: Acute Continue Atorvastatin (7) Type 2 diabetes mellitus without complications Status: Acute PCP manages (8) Mental status change Status: Acute CT head with and without contrast to rule out embolic stroke post stent or hemorrhagic stroke as patient is on chronic anticoagulation. UA to rule out UTI as source of confusion. Chest Xray to rule out infection source. <Liliana Landon - 07/06/17 10:22> - Attestation Attestation Narrative: 07/07/17 14:08 Recommendation After examining the patient I agree with the above assessment. I am involved in the formulation of the patient's plan of care. <Kirt Rivera - 07/07/17 14:08> Sepsis Assessment - Evaluation Sepsis screening result: No Definite Risk <Liliana Landon - 07/05/17 12:39> Hospital Course Summary Disclaimer: The visit summary below is not to be considered part of the above Progress Note. <Kirt Rivera - 07/07/17 14:08> The visit summary below is not to be considered part of the above Progress Note. <Liliaan Landon - 07/05/17 12:39>
[2017-07-05] MEDS: SACUBITRIL/VALSARTAN 24/26mg TABLET PO SCH ×2 (12:43→21:04)
[2017-07-05] MEDS: --POM--ASPIRIN *EC* 81 MG TABLET PO SCH (12:46)
[2017-07-05] MEDS: --POM--APIXABAN 5 MG TABLET PO SCH ×2 (12:47→21:04)
[2017-07-05] MEDS: CARVEDILOL 3.125 MG TABLET PO SCH (18:07)
[2017-07-05] MEDS: CLOPIDOGREL 75 MG TABLET PO SCH (18:07)
[2017-07-05] MEDS: ATORVASTATIN 40 MG TABLET PO SCH (21:04)
[2017-07-06] MEDS: CARVEDILOL 3.125 MG TABLET PO SCH (08:47)
[2017-07-06] MEDS: DOXYCYCLINE 100 MG PO SCH (08:48)
[2017-07-06] MEDS: FEXOFENADINE 180 MG TABLET PO SCH (08:49)
[2017-07-06] MEDS: CELECOXIB 200 MG CAPSULE PO SCH (08:49)
[2017-07-06] MEDS: DULOXETINE 60 MG PO SCH (08:50)
[2017-07-06] MEDS: OXYBUTYNIN IR 5 MG PO SCH (08:51)
[2017-07-06] MEDS: --POM--ASPIRIN *EC* 81 MG TABLET PO SCH (08:51)
[2017-07-06] MEDS: --POM--APIXABAN 5 MG TABLET PO SCH (08:52)
[2017-07-06] MEDS: SACUBITRIL/VALSARTAN 24/26mg TABLET PO SCH (08:54)
[2017-07-06] MEDS: ZINC PO SCH (08:55)
[2017-07-06] MEDS: STRESS FORMULA PO SCH (08:55)
[2017-07-06] MEDS ORDERED: AMIODARONE 200 MG TABLET PO SCH (09:00)
[2017-07-06] MEDS: MULTI-VITAMIN PLAIN TABLET PO SCH (10:10)
[2017-07-06] MEDS: CLOPIDOGREL 75 MG TABLET PO SCH (10:10)
[2017-07-06] MEDS: DOCUSATE SODIUM 100 MG CAPSULE PO SCH (10:10)
--- NOTE | 2017-07-06 10:39 | Discharge Summary ---
<Liliana Landon - Last Filed: 07/06/17 11:39> Discharge Information Date of admission: 07/05/17 14:31 Anticipated date of discharge: 07/06/17 Attending Physician: Kirt Rivera MD Primary care physician: Priya Maria APRN Consults: 07/04/17 12:33 [facility] Consult [CONS] Routine - Discharge Diagnosis (1) Atherosclerotic heart disease of [place] coronary artery without angina pectoris Status: Acute (2) Ischemic cardiomyopathy Status: Acute (3) Paroxysmal atrial fibrillation Status: Acute (4) Atherosclerosis of [place] artery of both lower extremities Status: Acute (5) Presence of cardiac pacemaker Status: Acute (6) Mixed hyperlipidemia Status: Acute (7) Type 2 diabetes mellitus without complications Status: Acute (8) Mental status change Status: Acute - Procedures Procedures: Date of Exam: 07/04/17 Type of Exam(s): CA heart cath LT DATE OF PROCEDURE July 04, 2017 The patient is a 72-year-old gentleman with coronary artery disease and abnormal stress test and ulcer of the right lower extremity. He was referred for further evaluation by cardiac catheterization and lower extremity angiogram and possible intervention. Informed consent was obtained after explaining the procedure and the potential risks to the patient who agreed to proceed with the procedure. PROCEDURE 1. Left heart catheterization. 2. Coronary angiography. 3. Left ventriculography. 4. Prior PTCA and stent of the LAD using a 2.75 x 20, 2.5 x 12 and a 3.5 x 12 drug-eluting Resolute [place] stents. 5. Abdominal aortography by placing catheter in abdominal aorta across the renal arteries. 6. Pelvic angiography by placing catheter in distal abdominal aorta. 7. Selective right lower extremity angiogram using crossover technique and placing catheter in right SFA and right common femoral arteries. 8. Runoffs of the left lower extremity through the left femoral sheath. 9. Successful Mynx deployment for hemostasis. TECHNIQUE He was prepped and draped in the usual sterile techniques. Conscious sedation was performed using Versed and fentanyl. Using modified Seldinger technique, arterial access was obtained into the left femoral artery with placement of a 6- Fr arterial sheath after anesthetizing the region using 1% lidocaine. 8000 units of heparin and 600 mg of Plavix were given prior to intervention. LEFT VENTRICULOGRAPHY Left ventriculography in single-plane VICENTE shallow projection showed anterior and apical akinesia and inferior hypokinesia with ejection fraction of about 20 % with no mitral regurgitation or gradient across the aortic valve. LVEDP was about 18. CORONARY ANGIOGRAPHY Left main was free of significant lesions. Left anterior descending artery had two 90% in-stent stenoses, one in proximal and one in mid LAD. Distal to the stent there was another 70% stenosis. The very distal vessel also had about 60% -70% stenosis. Diagonal artery had 90% stenosis. The left circumflex artery had about 40%-50% mid stenosis with calcification. Right coronary artery had minor disease of up to about 40%. After reviewing the images we decided to proceed with intervention. A 6-Fr EBU 3.75 was advanced to the ostium of left main. A Runthrough wire was used to cross the lesion into distal LAD. A 2.5 x 20 balloon was delivered to the lesion site and two inflations were performed up to 14 atmospheres. Next, we used a 2.75 x 22 drug-eluting [place] stent which was delivered to the distal part of the lesion and deployed by inflating the balloon to 16 atmospheres. The next angiogram showed excellent results with no residual stenosis at the site. However, distal to the stent there was another 70% stenosis. We used a 2.5 x 12 drug-eluting Resolute [place] stent which was delivered over the wire distal to the previous stent with minimal overlap and deployed by inflating the balloon to 14 atmospheres. The next angiogram showed excellent results with no residual stenosis at the site. Next, we used a 3.5 x 12 drug-eluting Resolute [place] stent which was delivered to the proximal lesion site where it was deployed by inflating the balloon to 16 atmospheres. The next angiogram showed excellent results with no residual stenosis in LAD. However, distal LAD had another 60%-70% stenosis. At this point the LAD was a small-caliber vessel in the range of 2 mm and therefore we decided to continue medical management for this site. ABDOMINAL AORTOGRAPHY Abdominal aortography showed diffuse irregularities of the abdominal aorta with no significant lesions or aneurysms. There were single renal arteries to each kidney. Right renal artery was widely patent. Left renal artery was not visualized well. PELVIC ANGIOGRAPHY Pelvic angiography showed patent common iliacs, external and internal iliacs and common femoral arteries bilaterally. Selective right lower extremity angiogram showed patent profunda. SFA had 80%- 90% focal in-stent stenosis. Right popliteal artery was patent. Right anterior tibial, posterior tibial and peroneal arteries were occluded with reconstitution of the peroneal artery in mid segment and reconstitution of the anterior and posterior left tibial arteries distally through the collaterals. Runoffs of the left lower extremity showed patent profunda. SFA had 80%-90% stenosis. Popliteal artery was patent. Left anterior tibial and posterior tibial arteries were occluded. Left peroneal artery had 90% stenosis. The patient tolerated the procedure well with no complications. Mynx was used for hemostasis. IMPRESSION 1. Severe LV dysfunction with ejection fraction of about 20%. 2. Coronary artery disease as described above. 3. Successful PTCA and stent of LAD using a 2.5 x 12, 2.75 x 22, and 3.5 x 12 drug-eluting Resolute [place] stents. 4. High-grade stenosis of the diagonal artery. 5. High peripheral arterial disease as described above. 6. Successful Mynx deployment for hemostasis. PLAN Will keep him on dual antiplatelet therapy and continue risk modification. Recheck the LV function in future after percutaneous intervention. Meanwhile, will schedule him to undergo diagonal percutaneous intervention in the near future. With regard to PAD one might consider right SFA NECKTIES PAINTER and possible recanalization and NECKTIES PAINTER of the right peroneal artery. This should be approached from the left groin. With regard to the left SFA disease, one might consider left SFA and left peroneal artery percutaneous intervention from right groin. - Laboratory Labs: 07/06/17 09:22 07/06/17 09:22 Laboratory Results - last 48 hr 07/04/17 07/04/17 07/04/17 12:07 12:07 12:07 WBC 7.8 RBC 4.85 Hgb 14.3 Hct 43.2 MCV 89.1 MCH 29.5 MCHC 33.1 RDW Std Deviation 44.7 Plt Count 218 MPV 10.7 Immature Gran % (Auto) 0.3 Neut % (Auto) 57.9 Lymph % (Auto) 31.3 [place] % (Auto) 5.6 Eos % (Auto) 4.3 H Baso % (Auto) 0.6 Neut # 4.5 Lymph # 2.5 [place] # 0.4 Eos # 0.3 Baso # 0.1 Abs Immat Gran (auto) 0.02 Turbidity < 20 Sodium 146 H Potassium 3.4 L Chloride 107 Carbon Dioxide 29 Anion Gap 10 BUN 16.0 Creatinine 0.8 GFR Calculation 95 BUN/Creatinine Ratio 20 Glucose 185 H Glucometer Calculated Osmolality 287 H Calcium 9.9 Total Bilirubin Conjugated Bilirubin Unconjugated Bilirubin Icterus Index < 2 AST ALT Alkaline Phosphatase Total Protein Albumin Globulin Albumin/Globulin Ratio Triglycerides 213 H Cholesterol 146 LDL Cholesterol, Calc 77.4 VLDL Cholesterol 42.6 H HDL Cholesterol 26 L Cholesterol/HDL Ratio 5.6 H Specimen Hemolysis < 15 Ur Collection Type Urine Color Urine Clarity Urine pH Ur Specific [place] Urine Protein Urine Glucose (UA) Urine Ketones Urine Occult Blood Urine Nitrate Urine Bilirubin Urine Urobilinogen Ur Leukocyte Esterase Urinalysis Comment 07/04/17 07/04/17 07/05/17 16:49 21:14 05:17 WBC 7.5 RBC 4.87 Hgb 14.6 Hct 42.9 MCV 88.1 MCH 30.0 MCHC 34.0 RDW Std Deviation 44.5 Plt Count 192 MPV 11.2 Immature Gran % (Auto) 0.3 Neut % (Auto) 83.8 H Lymph % (Auto) 7.1 L [place] % (Auto) 5.7 Eos % (Auto) 2.7 Baso % (Auto) 0.4 Neut # 6.3 Lymph # 0.5 L [place] # 0.4 Eos # 0.2 Baso # 0.0 Abs Immat Gran (auto) 0.02 Turbidity Sodium Potassium Chloride Carbon Dioxide Anion Gap BUN Creatinine GFR Calculation BUN/Creatinine Ratio Glucose Glucometer 117 148 Calculated Osmolality Calcium Total Bilirubin Conjugated Bilirubin Unconjugated Bilirubin Icterus Index AST ALT Alkaline Phosphatase Total Protein Albumin Globulin Albumin/Globulin Ratio Triglycerides Cholesterol LDL Cholesterol, Calc VLDL Cholesterol HDL Cholesterol Cholesterol/HDL Ratio Specimen Hemolysis Ur Collection Type Urine Color Urine Clarity Urine pH Ur Specific [place] Urine Protein Urine Glucose (UA) Urine Ketones Urine Occult Blood Urine Nitrate Urine Bilirubin Urine Urobilinogen Ur Leukocyte Esterase Urinalysis Comment 07/05/17 07/05/17 07/05/17 05:17 06:16 08:58 WBC RBC Hgb Hct MCV MCH MCHC RDW Std Deviation Plt Count MPV Immature Gran % (Auto) Neut % (Auto) Lymph % (Auto) [place] % (Auto) Eos % (Auto) Baso % (Auto) Neut # Lymph # [place] # Eos # Baso # Abs Immat Gran (auto) Turbidity < 20 < 20 Sodium 142 Potassium 3.7 Chloride 106 Carbon Dioxide 25 Anion Gap 11 BUN 14.0 Creatinine 0.7 L GFR Calculation 111 BUN/Creatinine Ratio 20 Glucose 175 H Glucometer 177 Calculated Osmolality 278 Calcium 9.3 Total Bilirubin 1.50 H Conjugated Bilirubin 0.00 Unconjugated Bilirubin 1.00 Icterus Index < 2 < 2 AST 32 ALT 39 Alkaline Phosphatase 58 Total Protein 6.6 Albumin 4.0 Globulin 2.6 Albumin/Globulin Ratio 1.5 Triglycerides Cholesterol LDL Cholesterol, Calc VLDL Cholesterol HDL Cholesterol Cholesterol/HDL Ratio Specimen Hemolysis 23 56 H Ur Collection Type Urine Color Urine Clarity Urine pH Ur Specific [place] Urine Protein Urine Glucose (UA) Urine Ketones Urine Occult Blood Urine Nitrate Urine Bilirubin Urine Urobilinogen Ur Leukocyte Esterase Urinalysis Comment 07/05/17 07/05/17 07/05/17 11:46 12:10 17:31 WBC RBC Hgb Hct MCV MCH MCHC RDW Std Deviation Plt Count MPV Immature Gran % (Auto) Neut % (Auto) Lymph % (Auto) [place] % (Auto) Eos % (Auto) Baso % (Auto) Neut # Lymph # [place] # Eos # Baso # Abs Immat Gran (auto) Turbidity Sodium Potassium Chloride Carbon Dioxide Anion Gap BUN Creatinine GFR Calculation BUN/Creatinine Ratio Glucose Glucometer 173 165 Calculated Osmolality Calcium Total Bilirubin Conjugated Bilirubin Unconjugated Bilirubin Icterus Index AST ALT Alkaline Phosphatase Total Protein Albumin Globulin Albumin/Globulin Ratio Triglycerides Cholesterol LDL Cholesterol, Calc VLDL Cholesterol HDL Cholesterol Cholesterol/HDL Ratio Specimen Hemolysis Ur Collection Type Ureter Urine Color Yellow Urine Clarity Clear Urine pH 6.0 Ur Specific [place] <=1.005 L Urine Protein Negative Urine Glucose (UA) Negative Urine Ketones Negative Urine Occult Blood Negative Urine Nitrate Negative Urine Bilirubin Negative Urine Urobilinogen 0.2 Ur Leukocyte Esterase Negative Urinalysis Comment Microscopic not ind. 07/05/17 07/06/17 07/06/17 20:44 06:06 09:22 WBC 7.0 RBC 5.66 Hgb 16.3 D Hct 48.7 D MCV 86.0 MCH 28.8 MCHC 33.5 RDW Std Deviation 44.5 Plt Count 205 MPV 10.8 Immature Gran % (Auto) Neut % (Auto) Lymph % (Auto) [place] % (Auto) Eos % (Auto) Baso % (Auto) Neut # Lymph # [place] # Eos # Baso # Abs Immat Gran (auto) Turbidity Sodium Potassium Chloride Carbon Dioxide Anion Gap BUN Creatinine GFR Calculation BUN/Creatinine Ratio Glucose Glucometer 201 183 Calculated Osmolality Calcium Total Bilirubin Conjugated Bilirubin Unconjugated Bilirubin Icterus Index AST ALT Alkaline Phosphatase Total Protein Albumin Globulin Albumin/Globulin Ratio Triglycerides Cholesterol LDL Cholesterol, Calc VLDL Cholesterol HDL Cholesterol Cholesterol/HDL Ratio Specimen Hemolysis Ur Collection Type Urine Color Urine Clarity Urine pH Ur Specific [place] Urine Protein Urine Glucose (UA) Urine Ketones Urine Occult Blood Urine Nitrate Urine Bilirubin Urine Urobilinogen Ur Leukocyte Esterase Urinalysis Comment 07/06/17 09:22 WBC RBC Hgb Hct MCV MCH MCHC RDW Std Deviation Plt Count MPV Immature Gran % (Auto) Neut % (Auto) Lymph % (Auto) [place] % (Auto) Eos % (Auto) Baso % (Auto) Neut # Lymph # [place] # Eos # Baso # Abs Immat Gran (auto) Turbidity < 20 Sodium 144 Potassium 4.2 Chloride 109 H Carbon Dioxide 22 Anion Gap 13 BUN 13.0 Creatinine 0.7 L GFR Calculation 111 BUN/Creatinine Ratio 19 Glucose 186 H Glucometer Calculated Osmolality 282 H Calcium 9.6 Total Bilirubin Conjugated Bilirubin Unconjugated Bilirubin Icterus Index < 2 AST ALT Alkaline Phosphatase Total Protein Albumin Globulin Albumin/Globulin Ratio Triglycerides Cholesterol LDL Cholesterol, Calc VLDL Cholesterol HDL Cholesterol Cholesterol/HDL Ratio Specimen Hemolysis 75 H Ur Collection Type Urine Color Urine Clarity Urine pH Ur Specific [place] Urine Protein Urine Glucose (UA) Urine Ketones Urine Occult Blood Urine Nitrate Urine Bilirubin Urine Urobilinogen Ur Leukocyte Esterase Urinalysis Comment - Radiology Radiology: Date of Exam: 07/05/17 Ordering Provider: Liliana Landon APRN Type of Exam(s): CT head/brain wo/w con Reason for Exam(s): confusion Indication: confusion PROCEDURE: CT head/brain wo/w con: Encounter: Initial Comparison: January 26, 2017 Technique: Axial CT images through the head were performed without and with IV contrast. Iterative Reconstruction dose reducing technique was utilized. Contrast: Omnipaque 300 50mL FINDINGS: The ventricles are of normal size, shape, and contour for the patient's age. Mild atrophy. Scattered white matter low-attenuation changes are stable. The brainstem, cerebellum, and cerebral hemispheres have a normal morphology and CT attenuation. No hemorrhage, mass effect, mass lesions, or edema is evident. No areas of abnormal enhancement are seen. The visualized portions of the skull base, sinuses, and calvarium demonstrate no abnormality. IMPRESSION: Stable head CT. No acute intracranial abnormality. No evidence of intracranial metastatic disease. Date of Exam: 07/05/17 Ordering Provider: Liliana Landon APRN Type of Exam(s): XR chest 1V Reason for Exam(s): confusion Indication: confusion PROCEDURE: XR chest 1V: Encounter: Initial Comparison: April 21, 2017 Findings: Linear atelectasis or scarring in the left midlung. Mild pulmonary vascular congestion. No pneumothorax or lobar consolidation. Cardiac silhouette remains enlarged and mediastinal contours are slightly widened with pulmonary vascular prominence. Left pacemaker. Impression: Mild pulmonary vascular congestion without focal pneumonia. History of Present Illness HPI: Yosi is a 72 year old male who is known to Dr. Rivera with a history of CAD, PAD, HLD, DM type II, [place] [employer] PPM who had a recent stress test which was positive for ischemia. He was admitted as an outpatient for scheduled left heart catheterization with possible percutaneous intervention on 07/04/17 and had 3 stents to his LAD. Hospital Course This is a general summary of the patient's hospital course. For more details refer to the complete medical record. Hospital course: On 07/03/17 he had increased confusion which seemed worse than patient's baseline. CT of head was negative for thrombolic or hemorrhagic event. UTI negative for infection, Chest xray without acute cardiopulmonary changes. He did have a very irregular underlying rhythm when not paced which is felt to be AFib with aberrancy. LFTs were obtained and essentially normal so Yosi was started on Amiodarone IV bolus and drip and monitored overnight on cardiac telemetry in the CCU. He also was ordered a LifeVest due to dilated ischemic cardiomyopathy with an EF of 20%, which the patient was unable to understand use. [employer] was called to come and educate the patient's in it's use. Today his confusion has cleared. Oral amiodarone began and IV amiodarone stopped for discharge today Exam Vital signs: Temperature 98.6 F 07/05/17 22:00 Pulse Rate 82 07/06/17 08:00 Respiratory Rate 12 07/06/17 09:37 Blood Pressure 138/67 07/06/17 05:00 Pulse Oximetry 100 07/06/17 09:37 - Constitutional no acute distress, well nourished, cooperative - Routine HEENT Exam Head: Present: normocephalic ENT: Present: mucous membranes moist - Routine Neck Exam Absent: JVD, carotid bruit - Routine Chest/Breast/Axilla Exam Chest wall: Absent: tenderness - Routine Respiratory Exam Present: CTA bilaterally. Absent: rales, wheezes - Routine Cardiovascular Exam Present: murmur (I/), irregular rhythm. Absent: JVD - Routine Abdominal Exam Present: soft, normoactive bowel sounds - Routine Extremities Exam Present: no edema - Routine Skin Exam Present: intact, dry, warm - Routine Neurological Exam Present: alert - Routine Psychiatric Exam Present: normal affect, cooperative - Additional findings Additional findings: Acetaminophen (Tylenol) 325 - 650 mg PO Q5H PRN PRN Reason: Pain Acetaminophen/Hydrocodone Bitart ([place] 7.5/325) 1 - 2 tab PO Q5H PRN PRN Reason: Pain Last Admin: 07/04/17 16:47 Dose: 1 tab Acetaminophen/Hydrocodone Bitart ([place] 10/325) 1 tab PO Q4H PRN PRN Reason: pain Al Hydroxide/Mg Hydroxide (Maalox Plus) 30 ml PO Q3H PRN PRN Reason: Indigestion Amiodarone HCl (Pacerone) 200 mg PO DAILY [facility] Last Admin: 07/06/17 10:09 Dose: 200 mg Apixaban (Eliquis) 5 mg PO Q12HR [facility] Last Admin: 07/06/17 08:52 Dose: 5 mg Aspirin (Ecotrin) 81 mg PO DAILY [facility] Last Admin: 07/06/17 08:51 Dose: 81 mg Atorvastatin Calcium (Lipitor) 40 mg PO HS [facility] Last Admin: 07/05/17 21:04 Dose: 40 mg Atropine Sulfate (Atropine) 0.5 mg IVP Q5M PRN PRN Reason: Bradycardia Bisacodyl (Dulcolax) 5 - 10 mg PO DAILY PRN PRN Reason: Constipation Bisacodyl (Dulcolax) 10 mg RECTALLY DAILY PRN PRN Reason: Constipation Budesonide/Formoterol Fumarate (Symbicort Inhaler) 2 puff ORAL INH BID [facility] Last Admin: 07/06/17 09:36 Dose: 2 puff Carvedilol (Coreg) 3.125 mg PO BIDWM [facility] Last Admin: 07/06/17 08:47 Dose: 3.125 mg Celecoxib (Celebrex) 200 mg PO DAILY [facility] Last Admin: 07/06/17 08:49 Dose: 200 mg Clopidogrel Bisulfate (Plavix) 75 mg PO DAILY [facility] Last Admin: 07/06/17 10:10 Dose: 75 mg Docusate Sodium (Colace) 100 mg PO BID [facility] Last Admin: 07/06/17 10:10 Dose: Not Given Doxycycline Hyclate (Vibramycin) 100 mg PO BIDWM [facility] Last Admin: 07/06/17 08:48 Dose: 100 mg Duloxetine HCl (Cymbalta) 60 mg PO BID [facility] Last Admin: 07/06/17 08:50 Dose: 60 mg Fexofenadine HCl (Allie) 180 mg PO DAILY [facility] Last Admin: 07/06/17 08:49 Dose: 180 mg Fluticasone Propionate (Flonase) 2 spray EA NOSTRIL DAILY PRN PRN Reason: PRN orders Magnesium Hydroxide (Mom) 30 ml PO DAILY PRN PRN Reason: Constipation Metoclopramide HCl (Reglan) 5 - 10 mg IVP Q6H PRN PRN Reason: Nausea &/or vomiting Morphine Sulfate (Morphine Sulfate Inj) 2 - 4 mg IVP Q5M PRN PRN Reason: Angina Multivitamins (Theragran) 1 tab PO DAILY [facility] Last Admin: 07/06/17 10:10 Dose: 1 tab Nitroglycerin (Nitrostat) 0.4 mg SL Q5MIN3 PRN PRN Reason: Angina Ondansetron HCl (Zofran) 4 mg IVP Q6H PRN PRN Reason: Nausea &/or vomiting Oxybutynin Chloride (Ditropan) 5 mg PO BID [facility] Last Admin: 07/06/17 08:51 Dose: 5 mg Promethazine HCl (Phenergan Inj) 12.5 - 25 mg IVP Q6H PRN PRN Reason: Nausea &/or vomiting Sacubitril/Valsartan (Entresto 24/26mg) 1 tab PO BID [facility] Last Admin: 07/06/17 08:54 Dose: 1 tab Silodosin (Rapaflo) 4 mg PO DAILY PRN Vitamin B Complex/Vit C/Vit E/Zinc (Stresstabs + Zinc) 1 tab PO DAILY [facility] Last Admin: 07/06/17 08:55 Dose: 1 tab Results 07/06/17 09:22 07/06/17 09:22 Lipids 07/04/17 Range/Units 12:07 Triglycerides 213 H (40-160) MG/DL Cholesterol 146 (132-199) MG/DL HDL Cholesterol 26 L (40-60) MG/DL Cholesterol/HDL Ratio 5.6 H (0-5.0) RATIO CBC 07/06/17 Range/Units 09:22 WBC 7.0 (4.5-11.0) T/MM3 RBC 5.66 (4.50-5.90) M/MM3 Hgb 16.3 D (13.5-17.5) GM/DL Hct 48.7 D (41-53) % Plt Count 205 (130-400) T/MM3 Comprehensive Metabolic Panel 07/06/17 Range/Units 09:22 Sodium 144 (134-144) MEQ/L Potassium 4.2 (3.6-5) MEQ/L Chloride 109 H (98-107) MEQ/L Carbon Dioxide 22 (22-30) MEQ/L BUN 13.0 (9-20) MG/DL Creatinine 0.7 L (0.8-1.5) MG/DL Glucose 186 H (75-110) MG/DL Calcium 9.6 (8.4-10.2) MG/DL Intake and Output 07/05/17 07/06/17 07/06/17 22:59 06:59 14:59 Intake Total 0 / 0 265.172 / 265.172 Output Total 1125 / 1125 400 / 400 Balance -1125 / -1125 -400 / -400 265.172 / 265.172 Intake: IV 0 / 0 265.172 / 265.172 Amiodarone 150 mg In 0 / 0 Normal Saline 100 ml @ 618 mls/hr IV O ONE Rx#: [id number] Cordarone 900 mg In 265.172 / 265.172 Normal Saline 500 ml @ 0. 5 MG/MIN 16.66 mls/hr IV .Q24H [facility] Rx#:[id number] Output: Urine 1125 / 1125 400 / 400 Other: Urine Appearance Clear Urine Color Yellow # Incontinent Voids 1 1 - Imaging and Cardiology Imaging & Cardiology Narrative: 07/06/17 10:49 EKG is ventricular paced. Discharge Plan - Med Rec/Dispo Referrals/Follow Up: Kirt Rivera MD [Physician] - 07/26/17 11:20 am Snow Instructions: [facility] [place] Heart Cath Additional Instructions: Hold Metformin until tomorrow Monday07/07/17 Prescriptions: New Amiodarone [Pacerone] 200 mg PO DAILY #30 tab Aspirin *EC* [Ecotrin] 81 mg PO DAILY #30 tab Clopidogrel [Plavix] 75 mg PO DAILY #30 tab SACUBITRIL/VALSARTAN 24/26mg [ENTRESTO 24/26mg] 1 tab PO BID #60 tab Carvedilol [Coreg] 3.125 mg PO BIDWM #60 tab Continue Vitamin B Complex Vit C No.4 [Super B Complex] 1 tab PO DAILY #0 Atorvastatin [Lipitor] 40 mg PO HS #60 tab Docusate Sodium [Colace] 100 mg PO BID 30 Days #60 cap Metformin HCl [Glucophage] 1,000 mg PO BIDWM 30 Days #6 tab Blood Sugar Diagnostic [Contour] 0 lancets .ROUTE .MEDSUPPLY Hydrocodone/APAP 10/325 [[place] 10/325] 1 tab PO Q4H PRN PRN Reason: pain Multivitamin [Multi-Day Vitamins] 1 tab PO DAILY #0 Budesonide/Formoterol Fumarate [Symbicort 160-4.5 Mcg Inhaler] 2 puff PO BID #0 Fluticasone Nasal [place] [Flonase] 2 spray EA NOSTRIL DAILY PRN #0 PRN Reason: PRN ORDERS Silodosin [Rapaflo] 4 mg PO DAILY PRN #0 PRN Reason: PRN ORDERS Fexofenadine HCl [Allie Allergy] 180 mg PO DAILY #0 Celecoxib [Celebrex] 1 cap PO DAILY #0 cap apixaban (Eliquis)5 mg tablet 5 mg PO Q12H #60 tab Cymbalta (duloxetine) 60 mg capsule,delayed release 60 mg PO BID #30 cap doxycycline hyclate 100 mg capsule 100 mg PO BID oxybutynin chloride 5 mg tablet 5 mg PO BID #60 tab bumetanide 1 mg tablet 0.5 mg PO DAILY #30 tab Discontinued nifedipine ER 30 mg tablet,extended release 30 mg PO AM #30 tab - Disposition [facility] Home [facility] <Kirt Rivera - Last Filed: 07/07/17 14:15> Discharge Information Date of admission: 07/05/17 14:31 Attending Physician: Kirt Rivera MD Primary care physician: Priya Maria APRN Consults: 07/04/17 12:33 Wound Vein Clinic Consult [CONS] Routine - Discharge Diagnosis (1) Atherosclerotic heart disease of [place] coronary artery without angina pectoris Status: Acute (2) Ischemic cardiomyopathy Status: Acute (3) Atherosclerosis of [place] artery of both lower extremities Status: Acute (4) Presence of cardiac pacemaker Status: Acute (5) Mixed hyperlipidemia Status: Acute (6) Type 2 diabetes mellitus without complications Status: Acute (7) Paroxysmal atrial fibrillation Status: Acute (8) Mental status change Status: Acute - Laboratory Labs: 07/06/17 09:22 07/06/17 09:22 Hospital Course This is a general summary of the patient's hospital course. For more details refer to the complete medical record. Exam Vital signs: Temperature 98.2 F 07/06/17 07:30 Pulse Rate 71 07/06/17 13:15 Respiratory Rate 29 H 07/06/17 13:15 Blood Pressure 160/75 H 07/06/17 13:00 Pulse Oximetry 100 07/06/17 13:15 Results 07/06/17 09:22 07/06/17 09:22 Discharge Plan - Med Rec/Dispo - Attestation Attestation Narrative: 07/07/17 14:14 Recommendation After examining the patient I agree with the above assessment. I am involved in the formulation of the patient's plan of care.
[2017-07-06 12:05] VITALS: TEMP 98.2
[2017-07-06 13:45] VITALS: BP 160/75; PULSE 71; RESP 29; O2SAT 100
== END 2017-07-06 13:35 | disposition home health service (06) | DRG 247 ==
LOC: CATH 11:30 → SRG 11:32 → CCU 19:20
PROVIDERS: ADMIT Internal Medicine Cardiovascular Disease; ATTEND Internal Medicine Cardiovascular Disease